=== PATIENT | male | born 1995 | race Caucasian/White ===

== ENCOUNTER 2018-11-08 10:52 | Emergency (ER) | payer OTHER ==
[2018-11-08] MEDS ORDERED: KETOROLAC 30 MG INJ IV (11:30)
[2018-11-08] MEDS ORDERED: SOD CHLORIDE 0.9% 1,000 ML IV (11:30)
[2018-11-08] MEDS: ACETAMINOPHEN 500 MG TAB PO ×2 (11:58→11:59)
[2018-11-08] MEDS: IBUPROFEN 800 MG TAB PO (11:58)
== END 2018-11-08 12:30 | disposition home or self-care (01) ==
LOC: FTE 10:52
DX: J02.9 Acute pharyngitis, unspecified (principal)
CPT/HCPCS: 99283; J7030

== ENCOUNTER 2018-11-11 20:10 | Emergency (ER) | payer OTHER ==
[2018-11-12] MEDS: DEXAMETHASONE 10 MG/ML 1 ML INJ IV (00:35)
[2018-11-12] MEDS: KETOROLAC 30 MG INJ IV (00:35)
[2018-11-12] MEDS: CEFTRIAXONE 1 GM/50 ML (PMX) 50 ML IVPB (00:35)
[2018-11-12] MEDS: SOD CHLORIDE 0.9% 1,000 ML IV (00:35)
== END 2018-11-12 02:03 | disposition home or self-care (01) ==
LOC: FTE 20:10
DX: J03.90 Acute tonsillitis, unspecified (principal)
CPT/HCPCS: 96365; 96375; 99284-25